=== PATIENT | female | born 1985 | race Hispanic/Latino ===

== ENCOUNTER 2023-08-08 19:23 | Observation (INO) | payer BC ==
[~2023-08-08] VITALS: Ht 149.9 cm; Wt 72.6 kg
[2023-08-08 19:36] VITALS: BP 138/86; PULSE 102; RESP 18
[2023-08-08 21:15] LABS: ADD UA MICROSCOPIC YES; APPEARANCE,URINE TURBID (CLEAR); BILIRUBIN,URINE NEGATIVE (NEGATIVE); COLOR,URINE YELLOW (YELLOW); GLUCOSE, URINE (UA) NEGATIVE (NEGATIVE); KETONES,URINE NEGATIVE (NEGATIVE); LEUKOCYTE ESTERASE ,URINE 500 Leu/uL (NEGATIVE); NITRATE,URINE NEGATIVE (NEGATIVE); OCCULT BLOOD,URINE NEGATIVE (NEGATIVE); PROTEIN,URINE 10 mg/dL (NEGATIVE); UROBILINOGEN,URINE 0.2 mg/dL (0.2-1.0)
[2023-08-08 21:20] LABS: BACTERIA,URINE FEW /HPF (None Seen); MUCUS,URINE RARE LPF (None Seen); OTHER CASTS, URINE 2 /LPF (None Seen); SQUAMOUS EPITHELIAL CELL,UR MOD /HPF (0-2); UNCLASSIFIED CRYSTAL 3 /HPF (None Seen); WBC CLUMP FEW /HPF (0-1); WBC,URINE 26-50 /HPF (0-1); YEAST,URINE BUDDING FEW /HPF (None Seen)
[2023-08-08 21:22] LABS: AMPHET/METH SCREEN,URINE NEGATIVE (NEGATIVE); BARBITURATE SCREEN, URINE NEGATIVE (NEGATIVE); BENZODIAZEPINES SCREEN,URINE NEGATIVE (NEGATIVE); CANNABINOID SCREEN,URINE NEGATIVE (NEGATIVE); COCAINE SCREEN,URINE NEGATIVE (NEGATIVE); OPIATE SCREEN,URINE NEGATIVE (NEGATIVE); PHENCYCLIDINE SCREEN,URINE NEGATIVE (NEGATIVE)
[2023-08-08] MEDS ORDERED: CELESTONE SOLUSPAN 6 MG/ML 5ML VIAL IM SCH (22:00)
[2023-08-08] MEDS ORDERED: LACTATED RINGERS 1000ML 1,000 ML IV SCH ×2 (22:00)
[2023-08-08] MEDS ORDERED: LACTATED RINGERS 1000ML 1,000 ML IV PRN (22:00)
[2023-08-08] MEDS ORDERED: MAGNESIUM 4GM PREMIX 100ML 100 ML IV PRN (22:00)
[2023-08-08] MEDS ORDERED: CALCIUM GLUC 1GM/10ML VIAL IV PRN (22:00)
[2023-08-08] MEDS ORDERED: TERBUTALINE SULFATE VIAL 1MG/ML SQ SCH (22:00)
[2023-08-08] MEDS ORDERED: OXYTOCIN-LR 30 UNITS/500ML 500 ML IV SCH (22:00)
[2023-08-08] MEDS ORDERED: MAGNESIUM SULFATE 40GM/1000ML 1,000 ML IV PRN (22:00)
[2023-08-08] MEDS ORDERED: TERBUTALINE SULFATE VIAL 1MG/ML SQ ONE (22:15)
[2023-08-08 22:37] LABS: BASOPHILS # (AUTO) 0.03 K/uL (0.00-0.20); BASOPHILS % (AUTO) 0.4 % (0.0-5.0); EOSINOPHILS # (AUTO) 0.04 K/uL (0.00-0.70); EOSINOPHILS % (AUTO) 0.5 % (0.0-8.0); HEMATOCRIT 31.8 % (36-48); IMMATURE GRANULOCYTE ABSOLUTE 0.02 K/uL (0-1); LYMPHOCYTES # (AUTO) 1.8 K/uL (1.0-4.8); LYMPHOCYTES % (AUTO) 21.8 % (21.0-51.0); MEAN CORPUSCULAR HEMOGLOBIN 31.1 pg (27.0-33.0); MEAN CORPUSCULAR HGB CONC 32.7 g/dL (32.0-36.0); MEAN CORPUSCULAR VOLUME 95.2 fL (79-99); MONOCYTES # (AUTO) 0.8 K/uL (0.1-1.0); MONOCYTES % (AUTO) 9.6 % (3.0-13.0); NEUTROPHILS # (AUTO) 5.6 K/uL (1.8-7.7); NEUTROPHILS % (AUTO) 67.5 % (40.0-77.0); PLATELET COUNT (AUTO) 229 K/uL (130-400); RED BLOOD CELL COUNT(AUTO) 3.34 MIL/uL (4.00-5.50); RED CELL DISTRIBUTION WIDTH 13.5 % (11.0-15.5); WHITE BLOOD COUNT (AUTO) 8.3 K/uL (4.8-10.8)
[2023-08-08 22:46] LABS: CREATININE 0.6 mg/dL (0.5-1.5); POTASSIUM 3.5 mmol/L (3.5-5.1)
[2023-08-08 22:48] LABS: INR < 0.93 (0.85-1.15); PROTHROMBIN TIME 10.5 SEC (9.6-11.6)
[2023-08-08 22:49] LABS: PARTIAL THROMBOPLASTIN TIME 28.7 SEC (26.3-35.5)
[2023-08-08 22:51] LABS: ALBUMIN 2.4 g/dL (3.5-5.0); BILIRUBIN,DIRECT 0.1 mg/dL (0.0-0.3); BILIRUBIN,TOTAL 0.2 mg/dL (0.2-1.0); TOTAL PROTEIN, SERUM 6.5 g/dL (6.0-8.3); URIC ACID 4.6 mg/dL (2.6-7.2)
[2023-08-08 23:11] LABS: FIBRINOGEN 560 mg/dL (180-350)
[2023-08-08 23:14] LABS: D-DIMER 2677 ng/mL (0-500)
[2023-08-08] MEDS ORDERED: CELESTONE SOLUSPAN 6 MG/ML 5ML VIAL ONE (23:16)
[2023-08-08 23:20] LABS: HIV 1&2 ANTIBODY Non-Reactive (Negative); HIV-1 p24 Antigen Non-Reactive (Negative)
[2023-08-09 09:09] LABS: RAPID PLASMA REAGIN NONREACTIVE (NONREACTIVE)
[2023-08-11 23:07] LABS: FIBRIN SPLIT PRODUCTS <5 ug/mL (<5)
== END 2023-08-09 00:50 | disposition home or self-care (01) ==
LOC: EDH 19:23 → LDH 20:02
PROVIDERS: ADMIT Obstetrics & Gynecology; ATTEND Obstetrics & Gynecology
DX: O62.9 Abnormality of forces of labor, unspecified (principal); Z3A.36 36 weeks gestation of pregnancy
CPT/HCPCS: 96372 ×2; 96360; 96361; 80076; 84550; 80048; 80305; 85025; 85378; 85384; 85610; 85730; 86592; 86850; 86900; 86901; 87088; 87340; 85370; 86701; 87390; 81001; 36415; G0378 ×5; G0379; J0702; J3105; J7120

== ENCOUNTER 2023-08-09 23:50 | Observation (INO) | payer BC ==
[2023-08-10] MEDS ORDERED: CELESTONE SOLUSPAN 6 MG/ML 5ML VIAL IM SCH
[2023-08-10 01:40] LABS: COLLECTION PERIOD,URINE 24 HR; TOTAL VOLUME 24HRS,URINE 1850 mL; TPROTEIN TIMED,URINE 15 mg/dL; TPROTEIN U,24HR CALC 278 mg/24HR (0-165)
== END 2023-08-10 | disposition home or self-care (01) ==
LOC: LDH 23:50
PROVIDERS: ADMIT Obstetrics & Gynecology; ATTEND Obstetrics & Gynecology
DX: O09.523 Supervision of elderly multigravida, third trimester (principal); O62.9 Abnormality of forces of labor, unspecified; Z3A.37 37 weeks gestation of pregnancy
CPT/HCPCS: 59025; 82570; 84156 ×2; G0378; G0379